=== PATIENT | female | born 2000 | race Caucasian/White ===

== ENCOUNTER 2021-06-18 20:13 | Emergency (ER) | payer OTHER, SELFPAY ==
[2021-06-18 20:39] VITALS: BP 130/70; PULSE 72; RESP 18; TEMP 36.8; O2SAT 98; BMI 31.4
[2021-06-18 21:37] LABS: MANUAL DIFF FLAG NO
[2021-06-18 21:38] LABS: Basophils Percent Auto 0.4 % (0-2); Eosinophils Absolute Auto 0.1 X10*3/uL (0.0-0.4); Eosinophils Percent Auto 1.4 % (0-4); Hematocrit 43.5 % (37.0-47.0); Hemoglobin 14.3 g/dl (12.0-16.0); Imm Gran Abs Auto 0.02 X10*3/uL (0.00-0.03); Imm Gran Pct Auto 0.3 % (0.0-0.4); Lymphocytes Percent Auto 38.1 % (20-40); Mean Corpuscular HGB Conc 32.9 g/dl (31.0-35.0); Mean Corpuscular Hemoglobin 29.4 pg (27.0-33.0); Mean Corpuscular Volume 89.3 fL (80.0-98.0); Monocytes Absolute Auto 0.5 X10*3/uL (0.1-1.2); Monocytes Percent Auto 6.3 % (2-11); Neutrophils Absolute Auto 4.2 x10*3/uL (2.0-8.3); Neutrophils Percent Auto 53.5 % (45-73); Platelet Count 270 X10*3/uL (160-400); Red Blood Count 4.87 X10*6/uL (4.20-5.50); Red Cell Distribution Width 12.6 % (11.0-16.0); White Blood Count 7.8 X10*3/uL (4.8-10.8)
[2021-06-18 22:00] VITALS: BP 110/56; PULSE 66; RESP 15; TEMP 36.6; O2SAT 99
[2021-06-18 22:00] LABS: Alanine Aminotransferase 16 U/L (0-31); Albumin Level 4.2 g/dL (3.5-5.0); Alkaline Phosphatase 61 U/L (39-117); Anion Gap 19 (12-20); Aspartate Amino Transferase 27 U/L (5-31); Bilirubin Total 0.2 mg/dL (0.0-1.0); Blood Urea Nitrogen 10 mg/dL (9-16); Calcium 10.2 mg/dL (8.4-10.2); Carbon Dioxide 21 mmol/L (22-29); Chloride 103 mmol/L (96-108); Estimated Glomerular Filt Rate > 60; Glucose Random 147 mg/dL (60-115); Potassium 5.3 mmol/L (3.3-5.1); Sodium 138 mmol/L (135-145)
--- NOTE | 2021-06-19 00:21 | ED_ITS ---
HPI - General Adult General Chief complaint: Extremity Problem Stated complaint: Weaknees/Leg Cramp Time Seen by Provider: 06/18/21 23:59 Source: patient and other ([employer]) Mode of arrival: ambulatory Limitations: no limitations History of Present Illness HPI narrative: Patient history of PTSD, mitochondrial disease complaining of diffuse leg pain without any swelling for last few days patient is not on any statins drinking enough fluids was seen at urgent care center prior to arrival suspected rhabdomyolysis and sent to the ER Related Data Allergies Allergy/AdvReac Type Severity Reaction Status Date / Time No Known Allergies Allergy Verified 06/18/21 20:47 Review of Systems Review of Systems: Yes all other systems are reviewed and are negative [facility] Past Medical History Medical History Autism CMV (cytomegalovirus infection) Dysphagia GERD (gastroesophageal reflux disease) Glaucoma Hearing loss IUGR (intrauterine growth retardation), delivered, current hospitalization Liver disease Mitochondrial disease Myopia PTSD (post-traumatic stress disorder) PVL (periventricular leukomalacia) Retinopathy Thyroid disease Social History Social History Advance Directives: No Physical Exam ED Vital Signs: Vital Signs - 24 hr 06/18/21 20:39 06/18/21 22:00 Temperature 98.2 F 98 F Pulse Rate 72 66 Respiratory Rate 18 15 Blood Pressure 130/70 110/56 L Pulse Oximetry 98 99 BMI result Body Mass Index 31.4 Appearance: Alert. And await No acute distress. And she Eyes: PERRLA, No Nystagmus ENT: Pharynx normal. Oral Mucosa moist Neck: Normal inspection. Neck supple. CVS: Normal heart rate and rhythm. Pulses normal. Respiratory: No respiratory distress. Equal air entry bilateral, Abdomen: Soft and nontender. Bowel sounds are present, Skin: Skin warm and dry. Normal skin color. Normal skin turgor. Extremities: No lower extremity edema. No calf tenderness no leg swelling Neuro: Oriented X 3. No motor deficit. Medical Decision Making MDM Narrative Medical decision making narrative: Patient has mild hyperkalemia secondary to mild metabolic acidosis. Patient refused to take local in a in the ER. Patient advised not to take any food containing high potassium. Her CK was normal Lab Data Lab results reviewed: Yes I reviewed the patient's lab results. Result diagrams: 06/18/21 21:30 06/18/21 21:30 Labs: Lab Results 06/18/21 06/18/21 Range/Units 21:30 21:30 WBC 7.8 (4.8-10.8) X10*3/uL RBC 4.87 (4.20-5.50) X10*6/uL Hgb 14.3 (12.0-16.0) g/dl Hct 43.5 (37.0-47.0) % MCV 89.3 (80.0-98.0) fL MCH 29.4 (27.0-33.0) pg MCHC 32.9 (31.0-35.0) g/dl RDW 12.6 (11.0-16.0) % Plt Count 270 (160-400) X10*3/uL MPV 10.0 (9.4-12.3) fL Immature Gran % (Auto) 0.3 (0.0-0.4) % Neut % (Auto) 53.5 (45-73) % Lymph % (Auto) 38.1 (20-40) % [place] % (Auto) 6.3 (2-11) % Eos % (Auto) 1.4 (0-4) % Baso % (Auto) 0.4 (0-2) % Lymph # (Auto) 3.0 (1.2-4.9) X10*3/uL [place] # (Auto) 0.5 (0.1-1.2) X10*3/uL Eos # (Auto) 0.1 (0.0-0.4) X10*3/uL Baso # (Auto) 0.0 (0.0-0.2) X10*3/uL Abs Immat Gran (auto) 0.02 (0.00-0.03) X10*3/uL Absolute Neuts (auto) 4.2 (2.0-8.3) x10*3/uL Absolute Nucleated RBC 0.000 (0.0-0.012) X10*3/uL Nucleated RBC % (auto) 0.0 (0.0-0.2) /100WBC Sodium 138 (135-145) mmol/L Potassium 5.3 H (3.3-5.1) mmol/L Chloride 103 (96-108) mmol/L Carbon Dioxide 21 L (22-29) mmol/L Anion Gap 19 (12-20) BUN 10 (9-16) mg/dL Creatinine 0.68 (0.5-1.4) mg/dL Estim Creat Clear Calc 134.0 Estimated GFR > 60 Random Glucose 147 H (60-115) mg/dL Calcium 10.2 (8.4-10.2) mg/dL Total Bilirubin 0.2 (0.0-1.0) mg/dL AST 27 (5-31) U/L ALT 16 (0-31) U/L Alkaline Phosphatase 61 (39-117) U/L Total Creatine Kinase 40 (26-140) U/L Total Protein 8.0 (6.5-8.0) g/dL Albumin 4.2 (3.5-5.0) g/dL Discharge Plan Discharge Clinical Impression: Myalgia, Hyperkalemia Patient Disposition: Home, Self-Care Instructions: Hyperkalemia (ED), Musculoskeletal Pain (ED) Additional Instructions: Drink plenty of fluids Avoid food containing high potassium Follow with PCP to recheck potassium after 1 week Interventions: ED Discharge Assessment Last Done: 06/19/21 00:36 Discharge Date/Time: 06/19/21 00:45
[2021-06-19] MEDS: Sodium Zirconium Cyclosilicate 10 GM POWD.PACK PO (00:29)
== END 2021-06-19 00:45 | disposition home or self-care (01) ==
LOC: HO.ED 06-19 00:32
PROVIDERS: Emergency Provider Internal Medicine
DX: M79.10 Myalgia, unspecified site (principal); E87.5 Hyperkalemia
CPT/HCPCS: 36415; 80053; 82550; 85025; 99283; 99284

== ENCOUNTER 2023-02-24 14:40 | Outpatient (REF) | payer MEDICAID, SELFPAY ==
[2023-02-24 14:57] LABS: MANUAL DIFF FLAG NO
[2023-02-24 15:27] LABS: INTERNATIONAL NORM RATIO 0.9 (0.9-1.1); Prothrombin Time 11.2 SEC (11.1-13.3)
[2023-02-24 15:29] LABS: Estimated Average Glucose 146 mg/dL; Hemoglobin A1c % 6.7 % (<6.0)
[2023-02-24 15:31] LABS: Basophils Percent Auto 0.4 % (0-2); Eosinophils Absolute Auto 0.1 X10*3/uL (0.0-0.4); Eosinophils Percent Auto 1.2 % (0-4); Hematocrit 45.6 % (37.0-47.0); Imm Gran Abs Auto 0.02 X10*3/uL (0.00-0.03); Imm Gran Pct Auto 0.2 % (0.0-0.4); Lymphocytes Absolute Auto 2.8 X10*3/uL (1.2-4.9); Mean Corpuscular HGB Conc 32.9 g/dl (31.0-35.0); Mean Corpuscular Hemoglobin 28.6 pg (27.0-33.0); Mean Platelet Volume 9.7 fL (9.4-12.3); Monocytes Absolute Auto 0.4 X10*3/uL (0.1-1.2); Monocytes Percent Auto 4.4 % (2-11); Neutrophils Absolute Auto 5.9 x10*3/uL (2.0-8.3); Neutrophils Percent Auto 63.8 % (45-73); Platelet Count 332 X10*3/uL (160-400); Red Blood Count 5.24 X10*6/uL (4.20-5.50); Red Cell Distribution Width 12.8 % (11.0-16.0); White Blood Count 9.2 X10*3/uL (4.8-10.8)
[2023-02-24 15:52] LABS: Alanine Aminotransferase 15 U/L (0-31); Albumin Level 4.3 g/dL (3.5-5.0); Alkaline Phosphatase 66 U/L (39-117); Anion Gap 13 (12-20); Aspartate Amino Transferase 19 U/L (5-31); Bilirubin Total 0.5 mg/dL (0.0-1.0); Blood Urea Nitrogen 10 mg/dL (9-16); Calcium 10.1 mg/dL (8.4-10.2); Carbon Dioxide 26 mmol/L (22-29); Chloride 105 mmol/L (96-108); Estimated Glomerular Filt Rate > 60; Glucose Random 119 mg/dL (60-115); Potassium 4.1 mmol/L (3.3-5.1); Sodium 140 mmol/L (135-145); Total Protein 7.9 g/dL (6.5-8.0)
== END 2023-02-24 14:41 | disposition home or self-care (01) ==
LOC: HO.LAB 14:40
PROVIDERS: PCP Internal Medicine; Visit Provider Internal Medicine
DX: Z00.01 Encounter for general adult medical examination with abnormal findings (principal); E78.2 Mixed hyperlipidemia; F84.0 Autistic disorder; G71.3 Mitochondrial myopathy, not elsewhere classified; J45.909 Unspecified asthma, uncomplicated
CPT/HCPCS: 36415; 80053; 83036; 85025; 85610

== ENCOUNTER 2023-08-18 12:40 | Outpatient (REF) | payer MEDICAID, SELFPAY ==
[2023-08-18 13:11] LABS: Estimated Average Glucose 131 mg/dL; Hemoglobin A1c % 6.2 % (<6.0)
[2023-08-18 13:17] LABS: Alanine Aminotransferase 21 U/L (0-31); Albumin Level 4.2 g/dL (3.5-5.0); Alkaline Phosphatase 59 U/L (39-117); Anion Gap 16 (12-20); Aspartate Amino Transferase 16 U/L (5-31); Bilirubin Total 0.3 mg/dL (0.0-1.0); Blood Urea Nitrogen 13 mg/dL (9-16); Calcium 10.3 mg/dL (8.4-10.2); Carbon Dioxide 24 mmol/L (22-29); Chloride 106 mmol/L (96-108); Cholesterol 248 mg/dL (<200); Estimated Glomerular Filt Rate > 60; Glucose Random 134 mg/dL (60-115); HDL Cholesterol 60 mg/dL (>40); LDL Cholesterol Calculated 153 mg/dL (<100); Potassium 4.5 mmol/L (3.3-5.1); Sodium 141 mmol/L (135-145); Total Protein 7.9 g/dL (6.5-8.0); Triglycerides 178 mg/dL (<150)
== END 2023-08-18 12:41 | disposition home or self-care (01) ==
LOC: HO.LAB 12:40
PROVIDERS: PCP Internal Medicine; Visit Provider Internal Medicine
DX: E11.9 Type 2 diabetes mellitus without complications (principal); E78.2 Mixed hyperlipidemia; F84.0 Autistic disorder
CPT/HCPCS: 36415; 80053; 80061; 83036

== ENCOUNTER 2023-11-17 12:31 | Outpatient (REF) | payer MEDICAID, SELFPAY ==
[2023-11-17 14:15] LABS: Estimated Average Glucose 137 mg/dL; Hemoglobin A1c % 6.4 % (<6.0)
[2023-11-17 14:22] LABS: Alanine Aminotransferase 13 U/L (0-31); Alkaline Phosphatase 61 U/L (39-117); Anion Gap 14 (12-20); Aspartate Amino Transferase 15 U/L (5-31); Bilirubin Total 0.4 mg/dL (0.0-1.0); Blood Urea Nitrogen 8 mg/dL (9-16); Carbon Dioxide 26 mmol/L (22-29); Chloride 103 mmol/L (96-108); Estimated Glomerular Filt Rate > 60; Glucose Random 154 mg/dL (60-115); Potassium 5.2 mmol/L (3.3-5.1); Sodium 138 mmol/L (135-145); Total Protein 7.5 g/dL (6.5-8.0)
[2023-11-17 18:22] LABS: Microalbumin Urine < 5.0 mg/L
== END 2023-11-17 12:32 | disposition home or self-care (01) ==
LOC: HO.LAB 12:31
PROVIDERS: PCP Internal Medicine; Visit Provider Internal Medicine
DX: E11.9 Type 2 diabetes mellitus without complications (principal); E78.2 Mixed hyperlipidemia; F84.0 Autistic disorder; G47.33 Obstructive sleep apnea (adult) (pediatric)
CPT/HCPCS: 36415; 80053; 82570; 83036

== ENCOUNTER 2024-07-29 11:56 | Outpatient (REF) | payer MEDICAID, SELFPAY ==
[2024-07-29 13:13] LABS: Estimated Average Glucose 137 mg/dL; Hemoglobin A1C 166.0649 umol/L; Hemoglobin A1c % 6.4 % (<6.0); Total Hemoglobin (HGBA1C) 3572.6751 umol/L
[2024-07-29 13:19] LABS: Alanine Aminotransferase 13 U/L (0-31); Albumin Level 3.9 g/dL (3.5-5.0); Alkaline Phosphatase 54 U/L (39-117); Anion Gap 11 (12-20); Aspartate Amino Transferase 18 U/L (5-31); Bilirubin Total 0.3 mg/dL (0.0-1.0); Blood Urea Nitrogen 13 mg/dL (9-16); Calcium 9.5 mg/dL (8.4-10.2); Carbon Dioxide 26 mmol/L (22-29); Chloride 106 mmol/L (96-108); Cholesterol 193 mg/dL (<200); Estimated Glomerular Filt Rate > 60; Glucose Random 117 mg/dL (60-115); HDL Cholesterol 59 mg/dL (>40); LDL Cholesterol Calculated 100 mg/dL (<100); Potassium 4.3 mmol/L (3.3-5.1); Sodium 139 mmol/L (135-145); Triglycerides 170 mg/dL (<150)
--- OUTSIDE RECORDS SUMMARY | 2024-07-29 14:18 | XMS_ITS | Encounter Summary ---
Author Organization [facility] Address [address] [place] [address] Phone Care Team Providers Care Lining Ironer Name Role Phone Joan Beckford MD Primary Care Provider [phone] Encounter Details Date Type Department Care Team (Late st Contact Info) Description 04/29/2016 [place]ation [facility] [place] [facility] [address] [place] [address] Family Medicine, Physician [address] [place], [place] [phone] Social History Tobacco Use Types Packs/Day Years Used Date Smoking Tobacco: Never Assessed Comments Unknown Sex and Gender Information Value Date Recorded Sex Assigned at Female 11/12/2019 3:58 PM EDT Legal Sex Female 5:22 PM EDT Gender Identity Female 11/12/2019 3:58 PM EDT Sexual Orientation Bisexual 11/12/2019 3: 58 PM EDT documented as of this encounter Plan of Treatment Not on file documented as of this encounter Visit Diagnoses Not on filedocumented in this encounter Care Teams Lining Ironer Relationship Specialty Start Date End Date Joan Beckford MD [address] [place] [address] PCP - General Pediatrics 10/05/17 06/19/22 documented as of this encounter
--- OUTSIDE RECORDS SUMMARY | 2024-07-29 14:18 | XMS_ITS | Encounter Summary ---
Author Organization [facility] Address [address] [place] [address] Phone Care Team Providers Care Information Systems Audit Manager Name Role Phone Joan Beckford MD Primary Care Provider Reason for Visit * Reason Comments Med Refill Encounter Details Date Type Department Care Team (Late st Contact Info) Description 06/04/2017 Refill [facility] [place] [address] [place] [address] Margareth Jimenes MD Dysmenorrhea in adolescent (Primary Dx) Social History Tobacco Use Types Packs/Day Years Used Date Smoking Tobacco: Never Smokeless Tobacco: Never Comments:Never smoker Comments Unknown Sex and Gender Information Value Date Recorded Sex Assigned at Female 11/12/2019 3:58 PM EDT Legal Sex Female 5:22 PM EDT Gender Identity Female 11/12/2019 3:58 PM EDT Sexual Orientation Bisexual 11/12/2019 3: 58 PM EDT documented as of this encounter Miscellaneous Notes * Telephone Encounter - Karuna Chilel LPN - 06/05/2017 7:52 AM EST PCP MASSIEL: pharm fax refill request OCP. VM left advising pt due to appt this Month. EH documented in this encounter Plan of Treatment Not on file documented as of this encounter Visit Diagnoses Diagnosis Dysmenorrhea in adolescent- Primary documented in this encounter Care Teams Information Systems Audit Manager Relationship Specialty Start Date End Date Joan Beckford MD [address] [place] [address] PCP - General Pediatrics 10/05/17 06/19/22 documented as of this encounter
--- OUTSIDE RECORDS SUMMARY | 2024-07-29 14:18 | XMS_ITS | Encounter Summary ---
Author Organization [facility] Address [address] [place] [address] Phone Care Team Providers Care Phlebotomy Manager Name Role Phone Joan Beckford MD Primary Care Provider [phone] Reason for Visit * Reason Comments Med Refill Encounter Details Date Type Department Care Team (Late st Contact Info) Description 02/17/2019 Refill [facility] [place] [address] [place] [address] Joan Beckford MD [address] [place] [address] Mild persistent asthma without complication Social History Tobacco Use Types Packs/Day Years Used Date Smoking Tobacco: Never Smokeless Tobacco: Never Comments:Never smoker Alcohol Use Standard Drinks/Week Comments No 0 (1 standard drink = 0.6 oz pur e alcohol) Comments Unknown Sex and Gender Information Value Date Recorded Sex Assigned at Female 11/12/2019 3:58 PM EDT Legal Sex Female 5:22 PM EDT Gender Identity Female 11/12/2019 3:58 PM EDT Sexual Orientation Bisexual 11/12/2019 3: 58 PM EDT documented as of this encounter Miscellaneous Notes * Telephone Encounter - Almita Brock LPN - 02/18/2019 9:29 AM EST Refill for proair refused, just ordered a month ago/JASMYNE documented in this encounter Plan of Treatment Not on file documented as of this encounter Visit Diagnoses Diagnosis Mild persistent asthma without complication documented in this encounter Care Teams Phlebotomy Manager Relationship Specialty Start Date End Date Joan Beckford MD [address] [place] [address] PCP - General Pediatrics 10/05/17 06/19/22 documented as of this encounter
--- OUTSIDE RECORDS SUMMARY | 2024-07-29 14:18 | XMS_ITS | Encounter Summary ---
Author Organization [facility] Address [address] [place] [address] Phone Care Team Providers Care Performance Architect Name Role Phone Joan Beckford MD Primary Care Provider [phone] Encounter Details Date Type Department Care Team (Late st Contact Info) Description 07/17/2016 Documentation [facility] [place] Family Medicine [address] [place] [address] Family Medicine, Physician [address] [place], [place] [phone] Social History Tobacco Use Types Packs/Day Years Used Date Smoking Tobacco: Never Comments:Never smoker Comments Unknown Sex [...] on filedocumented in this encounter Care Teams Performance Architect Relationship Specialty Start Date End Date Joan Beckford MD [address] [place] [address] PCP - General Pediatrics 10/05/17 06/19/22 documented as of this encounter
--- OUTSIDE RECORDS SUMMARY | 2024-07-29 14:18 | XMS_ITS | Encounter Summary ---
Author Organization [facility] Address [address] [place] [address] Phone Care Team Providers Care Director Of Curriculum Name Role Phone Joan Beckford MD Primary Care Provider [phone] Encounter Details Date Type Department Care Team (Late st Contact Info) Description 07/22/2016 Documentation [facility] [place] Family Medicine [address] [place] [address] Family Medicine, Physician [address] [place], [place] [phone] Social History Tobacco Use Types Packs/Day Years [...] on filedocumented in this encounter Care Teams Director Of Curriculum Relationship Specialty Start Date End Date Joan Beckford MD [address] [place] [address] PCP - General Pediatrics 10/05/17 06/19/22 documented as of this encounter
--- OUTSIDE RECORDS SUMMARY | 2024-07-29 14:18 | XMS_ITS | Encounter Summary ---
Author Organization [facility] Address [address] [place] [address] Phone Care Team Providers Care Stringed Instrument Tuner Name Role Phone Joan Beckford MD Primary Care Provider [phone] Encounter Details Date Type Department Care Team (Late st Contact Info) Description 10/25/2016 Documentation [facility] [place] [address] [place] [address] Family Medicine, Physician [address] [place], [place] [phone] Social History Tobacco Use Types Packs/Day Years [...] on filedocumented in this encounter Care Teams Stringed Instrument Tuner Relationship Specialty Start Date End Date Joan Beckford MD [address] [place] [address] PCP - General Pediatrics 10/05/17 06/19/22 documented as of this encounter
--- OUTSIDE RECORDS SUMMARY | 2024-07-29 14:18 | XMS_ITS | Encounter Summary ---
Author Organization [facility] Address [address] [place] [address] Phone Care Team Providers Care Bomb Squad Commander Name Role Phone Joan Beckford MD Primary Care Provider [phone] Encounter Details Date Type Department Care Team (Late st Contact Info) Description 08/12/2011 Documentation [facility] Family Medicine [address] [place] [address] Family Medicine, Physician [address] [place], [place] [phone] Social History Tobacco Use Types Packs/Day Years [...] on filedocumented in this encounter Care Teams Bomb Squad Commander Relationship Specialty Start Date End Date Joan Beckford MD [address] [place] [address] PCP - General Pediatrics 10/05/17 06/19/22 documented as of this encounter
--- OUTSIDE RECORDS SUMMARY | 2024-07-29 14:18 | XMS_ITS | Encounter Summary ---
Author Organization [facility] Address [address] [place] [address] Phone Care Team Providers Care Cheese Tester Name Role Phone Joan Beckford MD Primary Care Provider [phone] Encounter Details Date Type Department Care Team (Late st Contact Info) Description 05/31/2013 Documentation [place] [address] [place] [address] Family Medicine, Physician [address] [place], [place] [phone] Social History Tobacco Use Types Packs/Day Years [...] on filedocumented in this encounter Care Teams Cheese Tester Relationship Specialty Start Date End Date Joan Beckford MD [address] [place] [address] PCP - General Pediatrics 10/05/17 06/19/22 documented as of this encounter
--- OUTSIDE RECORDS SUMMARY | 2024-07-29 14:18 | XMS_ITS | Encounter Summary ---
Author Organization [facility] Address [address] [place] [address] Phone Care Team Providers Care Roentgenologist Name Role Phone Joan Beckford MD Primary Care Provider [phone] Encounter Details Date Type Department Care Team (Late st Contact Info) Description 07/17/2016 Documentation [facility] [place] [address] [place] [address] Family Medicine, Physician [address] [place], [place] [phone] Social History Tobacco Use Types Packs/Day Years [...] on filedocumented in this encounter Care Teams Roentgenologist Relationship Specialty Start Date End Date Joan Beckford MD [address] [place] [address] PCP - General Pediatrics 10/05/17 06/19/22 documented as of this encounter
--- OUTSIDE RECORDS SUMMARY | 2024-07-29 14:18 | XMS_ITS | Encounter Summary ---
Author Organization [facility] Address [address] [place] [address] Phone Care Team Providers Care Copy Holder Name Role Phone Joan Beckford MD Primary Care Provider [phone] Encounter Details Date Type Department Care Team (Late st Contact Info) Description 08/29/2016 Documentation [facility] [place] Medicine [address] [place] [address] Family Medicine, Physician [address] [place], [place] [phone] Social History Tobacco Use Types Packs/Day Years [...] on filedocumented in this encounter Care Teams Copy Holder Relationship Specialty Start Date End Date Joan Beckford MD [address] [place] [address] PCP - General Pediatrics 10/05/17 06/19/22 documented as of this encounter
--- OUTSIDE RECORDS SUMMARY | 2024-07-29 14:18 | XMS_ITS | Clinical Summary ---
Author Organization [facility] Address [address] [place] [address] Phone Care Team Providers Care Burling And Joining Supervisor Name Role Phone Unavailable Primary Care Provider Unavailabl e Allergies Active Allergy Reactions Criticality Noted Date Comments Chloral Hydrate Lidocaine Prilocaine Medications Alpha-Lipoic Acid 100 MG capsule Take by mouth. 2 Active Coenzyme Q10 (COQ-10) 100 MG capsule Take by mouth. 2 Active polyethylene glycol (MIRALAX) powder Take by mouth. 2 Active multivitamin tablet tablet Take by mouth. 2 Active ipratropium 0.03 % nasal spray 2 SPRAYS EACH NOSTRIL 3 TIMES A DAY NEEDED FOR NASAL CONGESTON 2 8 Active sertraline 50 MG tablet 9 Active Melatonin (MELATONIN MAXIMUM STRENGTH) 5 MG tabletIndication s:Sleep concern Take 1 tablet by mouth nightly. 30 each 11 9 Active NAPROXEN 500 MG tabletIndication s:Pain TAKE 1 TABLET BY MOUTH TWICE A DAY 60 tablet 9 [address] [employer] 20 MG tablet 0 Active fluticasone HFA (Flovent HFA) 110 MCG/ACT inhalerIndicatio ns:Mild persistent asthma without complication Inhale 2 puffs 2 (two) times a day. Rinse mouth with water after use, do not swallow. 1 Units 1 0 Active albuterol HFA 108 (90 Base) MCG/ACT inhalerIndicatio ns:Mild persistent asthma without complication Inhale 2-4 puffs every 4 (four) hours as needed for wheezing or shortness of breath (cough). Please always use with aerochamber (spacer). 2 Units 1 0 Active Levonorgest-Eth Estrad 91-Day 0.15-0.03 &0.01 MG tabletIndication s:Dysmenorrhea in adolescent,Devel opmental delay in child Take 1 tablet by mouth once daily. 91 each 3 0 Active ketoconazole 2 % shampooIndicatio ns:Seborrheic dermatitis of scalp PLEASE SEE ATTACHED FOR DETAILED DIRECTIONS 120 mL 1 0 Active Active Problems Problem Noted Date Diagnosed Date Scoliosis concern 11/12/2019 Overview (11/12/2019): Appears to have inconsistent exam. Followed by Photo Cartographer, Dr. Vásquez, at [facility]. Per mom has had x-rays through Dr. Vásquez. Also has orthotics in her shoes, wheelchair. Gets Physical Therapy. Assessment & Plan (11/12/2019 3:55 PM EDT): Given 19yo, nothing to do. Photo Cartographer is also following her for this. Subclinical hypothyroidism 02/26/2019 Overview (02/26/2019): Saw [facility] (Dr. Rodriguez) 02/24/19. Needs TFTs q6-12mo, last 02/23, TSH 7.82 (trending down), free T4 1.47 (nl), and thyroid ab neg, no levothyroxine indicated. Can f/u in 1 year, but also no need to see endo again unless new concerns arise. Assessment & Plan (11/12/2019 3:46 PM EDT): Will check TFTs today. BMI 32.0-32.9,adult 07/30/2018 Assessment & Plan (11/12/2019 4:49 PM EDT): Discussed healthier diet- needs more veggies and fruit! Mom is working on this. Assessment & Plan (12/17/2018 9:03 AM EDT): Fidelina has been learning to cook ([employer]), which is great. She has not been getting the daily exercise we talked about, so we discussed this again. Ideally, she should be walking daily, ideally 60min/day. Patient's mother is also working on getting her in to swimming lessons. Will check weight again at in the spring. Assessment & Plan (07/30/2018 2:16 PM EDT): BMI 32 Discussed continuing a healthier diet and re-start daily exercise (which will be walking for her). Will screen for DM and dyslipidemia with fasting labs next winter (had fasting lipids in Apr 2018). Seborrheic dermatitis of scalp 07/10/2018 Assessment & Plan (11/12/2019 3:46 PM EDT): Ketoconazole 2% shampoo prescribed today. Continue OTC treatments as well. F/u prn. Assessment & Plan (07/10/2018 3:31 PM EDT): Continue OTC [place] Blue and/or Heads and Shoulders. Start topical steroid- hydrocortisone 2.5% cream prescribed. Return if not improving in 1-2 weeks. Dysmenorrhea in adolescent 07/26/2017 Overview (07/26/2017): On OCPs for this with good control of symptoms. Assessment & Plan (11/12/2019 3:25 PM EDT): Still on OCPs and doing well. Assessment & Plan (07/30/2018 2:06 PM EDT): New Rx done today. Mild persistent asthma without complication 07/07 Overview (12/17/2018): Winter of Fidelina developed persistent sx of cough and wheezing. Uses albuterol for rescue therapy now and is on Flovent 110, 2 puffs bid, during the winter. Weans off for the spring/summer months. Trigger- URIs. 12/24. Assessment & Plan (11/12/2019 3:30 PM EDT): ACT = 30 and is off of Flovent right now. Winter is the worst, but this winter wasn't bad. Albuterol ordered again. Has an aerochamber. Only uses the Flovent in the winter if she's having a regular basis, and they did use it this winter, so advised to start again this fall/winter. Rx written for albuterol and Flovent today. AAP filled out and reviewed with family. Assessment & Plan (12/17/2018 9:07 AM EDT): Doing well, hasn't had any flares per patient and SOFTWARE DEVELOPMENT LEADER who is here. Needs new Rx for albuterol, so this is done today. Advised to start the Flovent given viral season is starting. Triggers are URIs, so will have to see how she does over the winter. Assessment & Plan (07/30/2018 2:06 PM EDT): Winter is the worst, but this winter wasn't bad. Albuterol ordered again. Has an aerochamber. Only uses the Flovent in the winter if she's having a regular basis, and they didn't need it this year. Rx written for albuterol and Flovent today. AAP filled out and reviewed with family. Chronic rhinitis 08/30/2016 Overview (04/02/2017): Referred by [facility] to Dr. Moise of [facility] for chronic allergic rhinitis. Comprehensive aeroallergen skin testing was all negative. Prescribed Dymista Nasal [place] - 2 sprays each nostril QD-bid and nasal lavage once daily. 08/21. Elevated cholesterol 06/13/2016 Overview (07/30/2018): 2011 lipid profile was only very slightly abnormal. Repeat fasting lipid profile 2017 - total chol 263, HDL normal at 91, LDL elev at 144, triglycerides elev at 138. Referred to her florist designer Dr. Gonsalez who recommended dietary intervention for hyperlipidemia (her Lipid Profile was normal in 2010 and should respond to change in lifestyle). 07/23 annual labs done fasting: chol 245, Triglyc 180, HDL 67, LDL 142, Non HDL chol 178. Followed by endo for hyperlipidemia, last 04/25 with TC 230, TG 193, HDL 61, non HDL 169. No f/u necessary (just if worsening labs or needs more dietary guidance), should repeat lipids annually. Assessment & Plan (11/12/2019 3:25 PM EDT): Repeat fasting labs soon. Assessment & Plan (07/30/2018 1:48 PM EDT): Repeat fasting lipids in 2019 - will order now and mom to have them done next Apr/May. PTSD (post-traumatic stress disorder) 04/24/2016 Overview (04/02/2017): Fidelina did reportedly experience a traumatic interaction with her father at 9 years of age and became reluctant to visit him. Visits became supervised. Parents when she was very young. Seeing her therapist for this. Autism spectrum disorder requiring support (jaiden trotter 1) 05/28/2014 Overview (11/12/2019): Had psychol eval through [facility] 03/20 for clarification of possible ASD. Testing revealed numberous areas of difficulty that corresponds to behaviors assoc. with ASD - poorly developed pragmatic lang skills, impaired social relatedness skills, obsessive topics of interest, lack of cognitive flexibility, mod sensory sensitivities and preoccupations, lack of self-awareness. There are no stereotyped behaviors noted and limited awareness for personal space was not reported. There is an assoc between Autism Spectrum and Mitochondrial Disorders. Psychologist diagnostic impression was: Autism Spectrum Disorder, Level 1 . Also diag with anxiety. 05/22. Followed by [facility], last appt 07/20/19, labs for autism expanded panel sent, f/u 4 mos. Encounter for counseling for care management of patient with chronic conditions and complex health needs using nurse-based model 05/25/2014 Gastroesophageal reflux disease without esophagi tis 02/26/2014 Overview (09/15/2019): Had a G tube for nutrition for FTT but this was removed and fistula closed by ped. Surgeons in 2009 when it was no longer needed for nutrition. Sees Dr. Gallardo/GI. Trial of omeprazole started 02/17 for persistent cough thought to possibly be due to GERD. Improved on omeprazole 20 mg bid, then treated with ranitidine 150mg bid as symptoms returned when she weaned off omeprazole, now famotadine 20mg bid or qday due to concerns re ranitidine. Followed by . Last f/u 09/24- changed ranitidine to famotadine 20mg qday or bid. F/u prn (was annual previously). Assessment & Plan (11/12/2019 3:36 PM EDT): Will transfer GI care to [facility]. Retinal detachment 02/26/2014 Overview (11/16/2018): Surgery at [facility] 2009. Has a hx of ROP Stage 3. s/p laser surgery in NICU. Detached retina L eye 03/15. R eye vitreous hemorrhage with temp vision loss 10/15. Now labeled as legally blind. Does wear glasses. Followed by Dr. Pinzon ([facility] retinal specialist in [place]), last 11/23, f/u 6-12mos. Assessment & Plan (11/12/2019 3:47 PM EDT): Mom to call for f/u. Anxiety 11/18/2013 Overview (11/12/2019): Sees a therapist - currently every other week Francie Khan, [facility]. Dr. Amada Ross prescribes Zoloft 50mg for her anxiety. 11/24 Assessment & Plan (11/12/2019 3:34 PM EDT): Last visit to Dr. Ross was prior to pandemic and mom asking about new Rx. Advised to call Dr. Ross first thing Friday to get appt. Continue with therapist as well. 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 Sx 2011- increasing fatigue/ weakness ajay later in the day and with exertion. Rehab has recommended a light wheel chair to use when needed to walk for longer periods of time than she can tolerate. 06/2011. 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 Chromosomal microarray testing ultimately read as normal.No further diag invest. warranted. 12/17. Sees /Chad in [facility] for physical med/rehab- to see internal communications specialist for visually impaired. Spine films stable. Shoe inserts still fit well. 11/27/14. Increasing fatigue noted fall 2016 and using wheelchair in school now. Also referred by Dr. Gonsalez to Dr. Mills at [facility]. 07/22. Is also followed by Dr. Gonsalez/Peds Cardiology every 2 years (plan for last 2020, then transition to adult provider) - last f/u 05/26 and had nl EKG and nl echo, - no cardiac involvement related to her mitochondrial disorder. Combined mitochondrial disease panel (mtDNA and nuclear DNA) panel were negative (normal). Now followed by [facility], last appt 07/20/19, labs for autism expanded panel sent, f/u 4 mos. Assessment & Plan (11/12/2019 3:17 PM EDT): Has f/u with Dr. Leigh at [facility] on Friday. Assessment & Plan (07/30/2018 2:19 PM EDT): Planning to go to [facility] for the mitochondrial clinic in the next [address] Gonsalez 05/26, plan for f/u 2 years. Sleep apnea 04/16/2010 Overview (12/15/2018): Has had sleep studies in [place]. Last one 11/2012 - had obstructive sleep apnea but less than significant # and ENT feels this lastest study was fine. Had titration sleep study at [facility] 02/21 - diag obstructive sleep apnea. Started on CPAP 6 cm H2O with heated humidifier. Not using CPAP currently (had done exposure therapy with mom). Repeat PSG 12/01/18 without CHIP or pathology to explain sleep issues, can repeat in supine-only position if clinically indicated. Assessment & Plan (12/17/2018 8:46 AM EDT): Hasn't been wearing her CPAP in a year, so they are happy that her PSG showed no CHIP! Assessment & Plan (07/30/2018 2:14 PM EDT): Mom needs to call to schedule the PSG, but she's between jobs, so has [employer] so mom wasn't sure about coverage. Mom about to start a new job. Assessment & Plan (07/10/2018 3:24 PM EDT): Not using CPAP anymore (for about a year) and has lost weight, so will order this today. Developmental delay in child 08/23/2009 Overview (04/02/2017): Has an IEP which includes goals for Indep. Functional mobility, vision, math, MEL, communication. Participates in weekly social skills gp. Accomodations include access to an elevator, keyboarding, and FM unit to support hearing in the past. Last psychol eval done through [facility] 03/20 for calrification regarding possible Autism Spectrum Disorder - cognitive assessment indicates overall score in low average range with areas of relative strength. Has areas of behavior assoc. with ASD - poor pragmatic lang skills, impaired social relatedness skills, obsessive topics of interest, lack of cognitive flexibility, mod sensory sensitivities, but no stereotyped behaviors and no limited awareness of personal space. [place] to have Autism Spectrum Disorder, assoc with a known condition (Mitochondrial Disorder). 05/22. Prematurity 08/23/2009 Overview (04/02/2017): Born at 27 weeks. BW 1 lb 14 oz. IUGR. Spent about 2 months in NICU. 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 Hx of periventricular leukomalacia and FTT. Resolved Problems Problem Noted Date Diagnosed Date Resolved Date History of hearing loss 02/26/2014 08/0 10/2019 Overview (04/02/2017): Has fluctuating mild low frequency conductive hearing loss rising to normal hearing bilat. Tymp are normal. Following at [facility]. Coupled with very poor vision Fidelina has difficulty understand. Had a hearing aid on R (left ear is okay for now) and had benefitted from amplification. 02/17. Follow up hearing eval in [place] - normal screen. 11/18. Recheck in 6 months. Currently no hearing aid but school uses FM amplifier for her. 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 x 7 days. Assessment & Plan (11/12/2019 3:36 PM EDT): Totally resolved per mom. Immunizations Immunization Administration Dates Next Due DTP 1998,1998 DTaP 5 10/19/2003,09/10/1999,1998 H1N1 02/02/2009 HPV Vaccine 9 Valent 11/16/2015,06/07/2015 HPV, Quadrivalent 05/25/2014 Hep A, ped/adol 06/07/2015,05/25/2014 Hep B, Adult 07/30/2018 Hep B, ped/adol 06/21/1999,1998,1998 Hib (PRP-T) 05/08/1999, 9,1998,04/06 IPV 11/07/2003,05/16/2000,1998 Influenza Split 02/18/2013, 2,12/19/2010,12/06 Influenza, injectable, quadrivalent 03/18/2015,0 04/11/2014 Influenza, injectable, quadr ivalent, preservative free 12/17/2018,02/10/2018,03/13/2017,12/05 Influenza, injectable, trivalent 009,12/14/2007,12/22/2006,01/20,02/01/2005,01/23/2004,01/31/2003 ,04/05/2002,02/02/2001,03/12/1999 MMR 11/07/2003,02/09/1999 Meningococcal B Trumenba 11/12/2019,12/17/2018,0 07/30/2018 Meningococcal Conj (Menactra) MCV4P 11/16/2015,0 06/11/2010 OPV 1998 Pneumococcal Conjugate 01/25/2000,12/12/1999 Pneumococcal Polysaccharide 02/28/2013 Tdap 06/11/2010 Varicella 11/23/2008,09/15/2000 Family History Medical History Relation Name Comments Diabetes Maternal Grandfather Hyperlipidemia Maternal Grandfather Depression Maternal Grandmother Diabetes Maternal Grandmother Hyperlipidemia Maternal Grandmother Hypertension Maternal Grandmother Thyroid cancer Maternal Grandmother ADD / ADHD Mother Anxiety disorder Mother Depression Mother Diabetes Mother Hyperlipidemia Mother Liver disease Mother ADD / ADHD Mother's Sister Anxiety disorder Mother's Sister Asthma Mother's Sister Depression Mother's Sister Relation Name Status Comments Father Alive Father: Alive a nd well Maternal Grandfather Maternal Grandmother Mother Alive Mother: ADD, Hy pertension, diabetes, elevated chol,obesity Mother's Sister Social History Tobacco Use Types Packs/Day Years Used Date Smoking Tobacco: Never Smokeless Tobacco: Never Tobacco Cessation:Counseling Given: Yes Comments:Never smoker Alcohol Use Standard Drinks/Week Comments No 0 (1 standard drink = 0.6 oz pur e alcohol) Comments No Sex and Gender Information Value Date Recorded Sex Assigned at Female 11/12/2019 3:58 PM EDT Legal Sex Female 5:22 PM EDT Gender Identity Female 11/12/2019 3:58 PM EDT Sexual Orientation Bisexual 11/12/2019 3: 58 PM EDT Last Filed Vital Signs Vital Sign Reading Time Taken Comments Blood Pressure 120/77 11/12/2019 2:52 PM EDT Pulse 80 11/12/2019 2:52 PM EDT Temperature 36.2 ??C (97.1 ??F) 11/12/2019 2:52 PM ED T Respiratory Rate - - Oxygen Saturation 97% 06/25/2017 1:14 PM EDT Inhaled Oxygen Concentration - - Weight 75.6 kg (166 lb 9.6 oz) 11/12/2019 2:52 P M EDT Height 152.4 cm (5') 11/12/2019 2:52 PM EDT Body Mass Index 32.54 11/12/2019 2:52 PM EDT Plan of Treatment Health Maintenance Due Date Last Done Comments DTaP,Tdap,and Td Vaccines (7 - Td or Tdap) 06/11/2020 06/11/2010, 10/19/2003, 09/10/1999, Additional history exists Influenza Vaccines (#1) 2023 12/18/19 19, 02/10/2018, 03/13/2017, Additional history exists COVID-19 Vaccine (2023- season) 2023 HIB Vaccines Completed 05/08/1999, 08/05, 1998, Additional history exists IPV Vaccines Completed 11/07/2003, 12/2000, 1998, Additional history exists MMR Vaccines Completed 11/07/2003, 02/09/1999 Varicella Vaccines Completed 11/23/2008, 09/15/2000 Pneumococcal Vaccine Aged Out 02/28/2013, 01/25/2000, 12/12/1999 No longer eligible based on patient's age to complete this topic Hepatitis A Vaccines Completed 06/07/2015, 05/25/19 15 HPV Vaccines Completed 11/16/2015, 05/2015, 05/25/2014 Meningococcal Vaccine Completed 11/16/2015, 011 Hepatitis B Vaccines Completed 07/30/2018, 06/21/1999, 1998, Additional history exists Men B Vaccine Completed 11/12/2019, 12/06, 07/30/2018 Insurance [facility] [place] [id number]
--- OUTSIDE RECORDS SUMMARY | 2024-07-29 14:18 | XMS_ITS | Encounter Summary ---
Author Organization [facility] Address [address] [place] [id number] Phone Care Team Providers Care Tying Machine Operator Lumber Name Role Phone Joan Beckford MD Primary Care Provider [phone] Reason for Visit * Reason Comments Med Refill Encounter Details Date Type Department Care Team (Late st Contact Info) Description 04/23/2020 Refill [facility] [place] [address] [place] [address] Joan Beckford MD [address] [place] [address] Mild persistent asthma without complication Social History [...] complication documented in this encounter Care Teams Tying Machine Operator Lumber Relationship Specialty Start Date End Date Joan Beckford MD [address] [place] [address] PCP - General Pediatrics 10/05/17 06/19/22 documented as of this encounter
--- OUTSIDE RECORDS SUMMARY | 2024-07-29 14:18 | XMS_ITS | Encounter Summary ---
Author Organization [facility] Address [address] [place] [address] Phone Care Team Providers Care Heavy Mobile Equipment Repairer Name Role Phone Joan Beckford MD Primary Care Provider [phone] Encounter Details Date Type Department Care Team (Late st Contact Info) Description 09/01/2014 Documentation [facility] Family Medicine [address] [place] [address] Family Medicine, Physician [address] [place], [place] [id number] Social History Tobacco Use Types Packs/Day Years [...] on filedocumented in this encounter Care Teams Heavy Mobile Equipment Repairer Relationship Specialty Start Date End Date Joan Beckford MD [address] [place] [address] PCP - General Pediatrics 10/05/17 06/19/22 documented as of this encounter
--- OUTSIDE RECORDS SUMMARY | 2024-07-29 14:18 | XMS_ITS | Encounter Summary ---
Author Organization [facility] Address [address] [place] [address] Phone Care Team Providers Care Health Physicist Name Role Phone Joan Beckford MD Primary Care Provider [phone] Encounter Details Date Type Department Care Team (Late st Contact Info) Description 07/22/2016 Documentation [facility] [place] Family Medicine [address] [place] [address] Family Medicine, Physician [address] [place], [place] [phone] Social History Tobacco Use Types Packs/Day Years [...] on filedocumented in this encounter Care Teams Health Physicist Relationship Specialty Start Date End Date Joan Beckford MD [address] [place] [address] PCP - General Pediatrics 10/05/17 06/19/22 documented as of this encounter
--- OUTSIDE RECORDS SUMMARY | 2024-07-29 14:18 | XMS_ITS | Encounter Summary ---
Author Organization [facility] Address [address] [place] [address] Phone Care Team Providers Care Wrapper Off Name Role Phone Joan Beckford MD Primary Care Provider [phone] Encounter Details Date Type Department Care Team (Late st Contact Info) Description 11/21/2016 Conversion Encounter [place] [facility] [place] [address] [place], [place] [phone] Social History Tobacco Use Types Packs/Day Years [...] on filedocumented in this encounter Care Teams Wrapper Off Relationship Specialty Start Date End Date Joan Beckford MD [address] [place] [address] PCP - General Pediatrics 10/05/17 06/19/22 documented as of this encounter
--- OUTSIDE RECORDS SUMMARY | 2024-07-29 14:18 | XMS_ITS | Encounter Summary ---
Author Organization [facility] Address [address] [place] [address] Phone Care Team Providers Care Supervisor Fiber Locking Name Role Phone Joan Beckford MD Primary Care Provider [phone] Reason for Visit * Reason Comments Med Refill Encounter Details Date Type Department Care Team (Late st Contact Info) Description 01/06/2019 Refill [facility] [place] [address] [place] [address] Joan Beckford MD [address] [place] [address] Mild persistent asthma without complication Social History [...] encounter Miscellaneous Notes * Telephone Encounter - Francie Boogie LPN - 01/07/2019 11:23 AM EDT Patient is fine. No issues with asthma. * Telephone Encounter - Almita Brock LPN - 01/06/2019 8:06 AM EDT Refill just done a few weeks ago. I left a message for mom to call with an update/JOD documented in this encounter Plan of Treatment Not on file documented as of this encounter Visit Diagnoses Diagnosis Mild persistent asthma without complication documented in this encounter Care Teams Supervisor Fiber Locking Relationship Specialty Start Date End Date Joan Beckford MD [address] [place] [address] PCP - General Pediatrics 10/05/17 06/19/22 documented as of this encounter
--- OUTSIDE RECORDS SUMMARY | 2024-07-29 14:18 | XMS_ITS | Encounter Summary ---
Author Organization [facility] Address [address] [place] [address] Phone Care Team Providers Care Supervisor Intermediates Name Role Phone Joan Beckford MD Primary Care Provider [phone] Encounter Details Date Type Department Care Team (Late st Contact Info) Description 09/15/[address] [facility] Family Medicine [address] [place] [address] Family Medicine, Physician [address] [place], [place] [phone] Social History Tobacco Use Types Packs/Day Years [...] on filedocumented in this encounter Care Teams Supervisor Intermediates Relationship Specialty Start Date End Date Joan Beckford MD [address] [place] [address] PCP - General Pediatrics 10/05/17 06/19/22 documented as of this encounter
--- OUTSIDE RECORDS SUMMARY | 2024-07-29 14:18 | XMS_ITS | Encounter Summary ---
Author Organization [facility] Address [address] [place] [address] Phone Care Team Providers Care Management Services Technician Name Role Phone Joan Beckford MD Primary Care Provider [phone] Encounter Details Date Type Department Care Team (Late st Contact Info) Description 08/02/2009 Documentation [facility] [place] [address] [place] [address] Family Medicine, Physician [address] [place], [place] [id number] Social History Tobacco Use Types Packs/Day Years [...] on filedocumented in this encounter Care Teams Management Services Technician Relationship Specialty Start Date End Date Joan Beckford MD [address] [place] [address] PCP - General Pediatrics 10/05/17 06/19/22 documented as of this encounter
--- OUTSIDE RECORDS SUMMARY | 2024-07-29 14:18 | XMS_ITS | Encounter Summary ---
Author Organization [facility] Address [address] [place] [address] Phone Care Team Providers Care Coating Supervisor Name Role Phone Joan Beckford MD Primary Care Provider [phone] Encounter Details Date Type Department Care Team (Late st Contact Info) Description 07/12/2010 Documentation [facility] [place] Family Medicine [address] [place] [address] Family Medicine, Physician [address] [place], [place] [id number] Social History Tobacco Use Types Packs/Day Years [...] on filedocumented in this encounter Care Teams Coating Supervisor Relationship Specialty Start Date End Date Joan Beckford MD [address] [place] [address] PCP - General Pediatrics 10/05/17 06/19/22 documented as of this encounter
== END 2024-07-29 11:57 | disposition home or self-care (01) ==
LOC: HO.10HDL 11:56
PROVIDERS: Visit Provider Internal Medicine
DX: Z00.00 Encounter for general adult medical examination without abnormal findings (principal); E11.9 Type 2 diabetes mellitus without complications; E78.00 Pure hypercholesterolemia, unspecified; J45.909 Unspecified asthma, uncomplicated; N94.6 Dysmenorrhea, unspecified
CPT/HCPCS: 36415; 80053; 80061; 83036